=== PATIENT | female | born 1990 | race Caucasian/White ===

== ENCOUNTER 2019-09-10 20:23 | Emergency (ER) | payer MEDICAID ==
[~2019-09-10] VITALS: Ht 172.7 cm; Wt 66.0 kg
[2019-09-10] MEDS ORDERED: IBUPROFEN 600MG TABLET PO STA (21:51)
[2019-09-10 23:19] VITALS: BP 115/79
== END 2019-09-10 23:20 | disposition home or self-care (01) ==
LOC: ER 20:35
DX: B34.9 Viral infection, unspecified (principal); R05 Cough; F41.9 Anxiety disorder, unspecified; F32.9 Major depressive disorder, single episode, unspecified
CPT/HCPCS: 71045; 99283